=== PATIENT | female | born 1950 | race Caucasian/White ===

== ENCOUNTER 2017-03-16 21:24 | Emergency (ER) | payer BC, OTHER ==
--- NOTE | 2017-03-16 22:14 | EDM.PDOC ---
ED HPI GENERAL MEDICAL PROBLEM - General Stated Complaint: HIGH BLOOD PRESSURE Time Seen by Provider: 03/16/17 21:46 Source of Information: Reports: Patient History Limitations: Reports: No Limitations - History of Present Illness INITIAL COMMENTS - FREE TEXT/NARRATIVE: Patient presents with concern of high blood pressure checks throughout the day and some tightness across the low ribcage anteriorly. The tightness was quite mild and present most of the afternoon and evening; it started while she was sitting and she thinks she is just a little tense. She says she has been more anxious and tense recently. She recorded her blood pressure about 10-12 times through the day with readings from 110/77 to 165/98 on her machine. She says that she has had 3 episodes of sharp pain at the low sternum in the past 3 days that last about one second and then go away. She has had heartburn/reflux issues but not in the last few days she says. She denies any pain in arms, shoulders, neck or jaw. She denies any history of NE, stents or other heart problems. She says she has no problem walking a few blocks or up a couple flights of stairs; she never has had chest pain or tightness just gets a little short of breath sometimes. - Related Data Allergies Allergy/AdvReac Type Severity Reaction Status Date / Time Sulfa (Sulfonamide Allergy Facial Verified 03/16/17 22:24 Antibiotics) Swelling Home Meds: Home Meds Cetirizine [ZyrTEC] 10 mg PO DAILY 03/16/17 [History] Olmesartan [Benicar] 20 mg PO DAILY 03/16/17 [History] Rosuvastatin Calcium 2.5 mg PO DAILY 03/16/17 [History] ED ROS GENERAL - Review of Systems Review Of Systems: See Below Constitutional: Denies: Fever, Chills, Weakness, Diaphoresis HEENT: Denies: Throat Pain, Vision Change Respiratory: Denies: Shortness of Breath, Cough Cardiovascular: Reports: Chest Pain, Blood Pressure Problem, Dyspnea on Exertion. Denies: Lightheadedness, Syncope GI/Abdominal: Denies: Abdominal Pain, Constipation, Diarrhea, Nausea, Vomiting : Denies: Dysuria, Flank Pain Musculoskeletal: Denies: Neck Pain, Shoulder Pain, Arm Pain, Back Pain Skin: Denies: Cyanosis, Jaundice, Mottled, Pallor, Diaphoresis Neurological: Denies: Confusion, Dizziness, Headache, Seizure, Syncope Psychiatric: Reports: Anxiety. Denies: Agitation, Confusion ED EXAM, GENERAL - Physical Exam Exam: See Below Exam Limited By: No Limitations General Appearance: Alert, WD/WN, No Apparent Distress Eye Exam: Bilateral Eye: EOMI, Normal Inspection, PERRL Ears: Normal External Exam, Hearing Grossly Normal Nose: Normal Inspection, No Blood Throat/Mouth: Normal Lips, Normal Voice, No Airway Compromise Head: Atraumatic, Normocephalic Neck: Normal Inspection, Supple, Non-Tender, Full Range of Motion Respiratory/Chest: No Respiratory Distress, Lungs Clear, Normal Breath Sounds, No Accessory Muscle Use Cardiovascular: Regular Rate, Rhythm, No Murmur Peripheral Pulses: 1+: Carotid (L), Carotid (R), Radial (L), Radial (R) GI/Abdominal: Normal Bowel Sounds, Soft, Non-Tender, No Organomegaly, No Distention Back Exam: No: CVA Tenderness (L), CVA Tenderness (R) Extremities: Non-Tender, No Pedal Edema Neurological: Alert, Oriented, Normal Cognition, No Motor/Sensory Deficits Psychiatric: Normal Affect, Normal Mood Skin Exam: Warm, Dry, Intact, Normal Color, No Rash Course - Orders/Labs/Meds Orders: Active Orders 24 hr Category Date Time Status EKG Documentation Completion [RC] ASDIRECTED Care 03/16/17 22:04 Ordered Chest 2V [CR] Stat Exams 03/16/17 22:04 Ordered CBC WITH AUTO DIFF [HEME] Stat Lab 03/16/17 22:04 Ordered CMP [COMPREHENSIVE METABOLIC PN,CMP] [CHEM] Stat Lab 03/16/17 22:04 Ordered TROPONIN I [CHEM] Stat Lab 03/16/17 22:04 Ordered EKG 12 Lead [EK] Routine Ther 03/16/17 22:04 Ordered - Re-Assessments/Exams Free Text/Narrative Re-Assessment/Exam: 03/16/17 22:59 Patient remained stable throughout ER course. She felt better almost immediately after taking the Ativan: the anxiety was improved and the tightness across low chest gone. We discussed findings and I feel there is no evidence of a cardiac etiology. EKG is normal. Patient discharged after discussing discharge instructions. Departure - Departure Time of Disposition: 22:55 Disposition: Home, Self-Care 01 Condition: good Clinical Impression: Anxiety, Pleuritic chest pain Additional Instructions: 1. Drink 8 cups of water daily. 2. Continue your blood pressure medication is instructed. 3. Follow up with your PCP in 1-3 days for recheck of blood pressure and discussion of anxiety if you want. 4. Return to ER as needed. - My Orders Last 24 Hours: My Active Orders 03/16/17 22:04 EKG Documentation Completion [RC] ASDIRECTED Chest 2V [CR] Stat CBC WITH AUTO DIFF [HEME] Stat CMP [COMPREHENSIVE METABOLIC PN,CMP] [CHEM] Stat TROPONIN I [CHEM] Stat EKG 12 Lead [EK] Routine - Assessment/Plan Last 24 Hours: My Active Orders 03/16/17 22:04 EKG Documentation Completion [RC] ASDIRECTED Chest 2V [CR] Stat CBC WITH AUTO DIFF [HEME] Stat CMP [COMPREHENSIVE METABOLIC PN,CMP] [CHEM] Stat TROPONIN I [CHEM] Stat EKG 12 Lead [EK] Routine
[2017-03-16] MEDS ORDERED: LORazepam 0.5 MG Tab PO ONE (22:17)
[2017-03-16 22:38] LABS: CHLORIDE,CL 104 mmol/L (98-115); SODIUM,NA 142 mmol/L (136-145)
[2017-03-16 22:51] VITALS: BP 136/76
== END 2017-03-16 23:00 | disposition home or self-care (01) ==
LOC: KA.ED 21:24
DX: R07.81 Pleurodynia (principal); F41.9 Anxiety disorder, unspecified; Z88.2 Allergy status to sulfonamides; Z79.899 Other long term (current) drug therapy
CPT/HCPCS: 36415; 71020; 80053; 84484; 85025; 93005; 99284; A9270

== ENCOUNTER 2022-06-04 01:20 | Emergency (ER) | payer MEDICARE, BC ==
[2022-06-04 01:36] VITALS: BP 150/75; PULSE 54
[2022-06-04] MEDS: predniSONE 20 MG Tab PO ONE (02:01)
[2022-06-04] MEDS: diphenhydrAMINE 25 MG Cap PO ONE (02:01)
== END 2022-06-04 02:10 | disposition home or self-care (01) ==
LOC: KA.ED 01:20
DX: L50.9 Urticaria, unspecified (principal); E78.00 Pure hypercholesterolemia, unspecified; I10 Essential (primary) hypertension; Z88.2 Allergy status to sulfonamides; Z79.899 Other long term (current) drug therapy
CPT/HCPCS: 99282; 99283; A9270-GY; J7512

== ENCOUNTER 2024-04-19 12:00 | Day surgery (SDC) | payer MEDICARE, BC ==
[~2024-04-19 12:00] MED LIST: Sodium Chloride 0.9% 10 ML Syringe FLUSH PRN
[2024-04-19] MEDS: Lactated Ringers 1,000 ML IV SCH (12:17)
[2024-04-19] MEDS ORDERED: Midazolam 1 MG/ML 2 ML SDV ONE (13:07)
[2024-04-19] MEDS ORDERED: Propofol 200 MG/20 ML SDV ONE (13:08)
[2024-04-19 14:59] VITALS: PULSE 62
[2024-04-19 15:08] VITALS: BP 127/86
== END 2024-04-19 15:53 | disposition home or self-care (01) ==
LOC: KA.SDS 12:00
PROVIDERS: ATTEND Family Medicine
DX: Z12.11 Encounter for screening for malignant neoplasm of colon (principal); K57.30 Diverticulosis of large intestine without perforation or abscess without bleeding; K64.8 Other hemorrhoids; I10 Essential (primary) hypertension; E78.1 Pure hyperglyceridemia; E66.9 Obesity, unspecified; I67.89 Other cerebrovascular disease; R73.9 Hyperglycemia, unspecified; F41.1 Generalized anxiety disorder; Z79.899 Other long term (current) drug therapy; Z88.2 Allergy status to sulfonamides; Z88.8 Allergy status to other drugs, medicaments and biological substances; Z68.31 Body mass index [BMI] 31.0-31.9, adult; Z86.010 Personal history of colon polyps
CPT/HCPCS: J2250; J2704; J7120